=== PATIENT | male | born 1995 | race Asian ===

== ENCOUNTER 2021-10-28 07:30 | Emergency (ER) | payer MEDICAID, SELFPAY ==
[2021-10-28 07:39] VITALS: BP 140/97; PULSE 61; RESP 16; TEMP 36.1; O2SAT 98; BMI 24.8
--- NOTE | 2021-10-28 08:14 | ED.SOB ---
HPI - SOB/Dyspnea General Date Seen: 10/28/21 Chief Complaint: Shortness of Breath/Dyspnea Stated Complaint: Shortness of breath, difficult breathing mucus Time Seen by Provider: 10/28/21 07:50 Source: patient Mode of arrival: ambulatory Limitations: no limitations History of Present Illness HPI Narrative: Patient is a pleasant 26-year-old gentleman who presents here with 2-3 days weakness a waking up in the morning and feeling something in the back of his throat he says he has shortness of breath with this. In the feeling of something there. This lasts for approximately an hour and then goes away. He has had increased the allergies, he just got a pet rabbit. Is noted his nasal discharge is increasing. He is not really coughing at all, there is no fevers or chills, no nausea vomiting, he does not have any chest pain with this, or any feeling like he has inability to get his air in. He does however feel that he does not get enough oxygen, and was reassured we told him is oxygen status was normal. No productive cough, no leg swelling, no personal history of any cardiovascular or pulmonary issues, he is a nonsmoker, nonuser of drugs, no history of hypertension hyperlipidemia diabetes or other issues, there is no family history premature coronary artery disease or DVTs or pulmonary emboli, no history of asthma. Speaking to me in full sentences in absolutely no distress, elicited complaint: shortness of breath Treatment prior to arrival: none Related Data Home Medications Medication Instructions Recorded Confirmed cetirizine 10 mg capsule (All Day 10 mg PO DAILY PRN 10/28/21 10/28/21 Allergy (cetirizine)) Allergies Allergy/AdvReac Type Severity Reaction Status Date / Time No Known Drug Allergies Allergy Verified 10/28/21 07:44 Review of Systems Status of ROS: Reports: 10 or more systems reviewed and unremarkable except as noted in History and below [facility] Social History Smoking Status: Never smoker Do you use any of these nicotine containing products: Vaping Products Second hand tobacco smoke exposure: No How often do you have a drink containing alcohol: monthly or less How many standard drinks containing alcohol do you have on a typical day: 1 or 2 How often do you have six or more drinks on one occasion: Never AUDIT-C Alcohol total score: 1 Non-prescribed substance use: denies use Exam Narrative: Exam Narrative: Patient is sitting in the room quietly speaking to me with normal phonation, he appears nontoxic, pupils are equal round reactive to light, TMs are normal, cranial nerves 3-12 are normal, oropharynx is entirely normal he does have a posterior thin exudate notable. That is clear, and this correlates with his nasal mucosa bilaterally which is slightly engorged, there is no sinus tenderness to palpation, there is no lymphadenopathy anterior posterior chains, his JVP is flat, is carotid upstrokes are equal. His TMs are normal bilaterally. Chest is good air entry bilaterally no wheeze and or crackles noted, he has no splinting, and no complaints of chest pain when he takes deep breathing, forced expiration reveals absolutely no wheezes, is heart sounds no clicks murmurs or gallops are noted, and there is no displacement of his PMI, his abdomen is soft there is no guarding no past splenomegaly, his lower legs show no palpable pain, no edema, equal circumference bilaterally, and normal pulses, normal neurologic exam. Const: Vital Signs, click to edit/add: Vital Signs - 24 hr 10/28/21 07:39 Temperature 97.0 F L Pulse Rate [Bilate ral Pulse Oximeter ] 61 Respiratory Rate 16 Blood Pressure [Le ft Upper Arm] 140/97 H Pulse Oximetry 98 Oxygen Delivery Me thod Room Air Course Course Hospital Course: I discussed with the patient, that I believe this is from postnasal drip, commonly occurring in the mornings, when he is supine. Flonase 1 squirt per nostril once per day for the next 4 weeks, he he is not to stop this for the next 10 days, as there is a prolonged onset for this medication to work, he discontinued use the cetirizine, but I reassured him, I do not see anything issue here. I recommend follow-up with primary care, for further ongoing treatment, consider allergy testing in the future. I reassured him about his globus issues. Vital Signs Vital signs: Initial Vital Signs Temperature 97.0 F L 10/28/21 07:39 Temperature Source Temporal Artery Scan 10/28/21 07:39 Pulse Rate 61 10/28/21 07:39 Respiratory Rate 16 10/28/21 07:39 Blood Pressure 140/97 H 10/28/21 07:39 Blood Pressure Mean 111 10/28/21 07:39 Blood Pressure Position Sitting 10/28/21 07:39 Pulse Oximetry 98 10/28/21 07:39 Oxygen Delivery Method 10/28/21 07:39 Vital Signs Temperature 97.0 F L 10/28/21 07:39 Pulse Rate 61 10/28/21 07:39 Respiratory Rate 16 10/28/21 07:39 Blood Pressure 140/97 H 10/28/21 07:39 Pulse Oximetry 98 10/28/21 07:39 Oxygen Delivery Method 10/28/21 07:39 Temperature 97.0 F L 10/28/21 07:39 Pulse Rate 61 10/28/21 07:39 Respiratory Rate 16 10/28/21 07:39 Blood Pressure 140/97 H 10/28/21 07:39 Pulse Oximetry 98 10/28/21 07:39 Oxygen Delivery Method 10/28/21 07:39 MDM - SOB/Dyspnea MDM Narrative Medical decision making narrative: Life-threatening differential diagnosis includes occluded COPD exacerbation, pulmonary edema, acute coronary syndromes, pulmonary embolism, pneumonia, and pneumothorax. Other differential diagnosis considerations include asthma, bronchitis as well as other etiologies Medical Records Attestation: I reviewed the patient's medical records. Discharge Plan Discharge Clinical Impression: Allergic rhinitis Patient Disposition: Home, Self-Care Condition: Stable Instructions: Allergic Rhinitis (ED), How to Use Nasal Weston (ED), Postnasal Drip (DC) Additional Instructions: Home, rest, suggest Flonase nasal spray 1 squirt per nostril once per day. this is OTC. Follow-up with primary care for further evaluation treatment, your respiratory examiner cardiovascular exam are normal, I believe this is in mucus in the back your throat, in the morning causing the issues. Prescriptions: No Action All Day Allergy (cetirizine) 10 mg capsule 10 mg PO DAILY PRN Follow Up/Referrals: Patito Luevano MD [Staff Physician] - Stand Alone Forms: [employer] Info Instructions
== END 2021-10-28 08:44 | disposition home or self-care (01) ==
LOC: ED 08:36
PROVIDERS: Emergency Provider Family Medicine
DX: J30.9 Allergic rhinitis, unspecified (principal)
CPT/HCPCS: 99282; 99283; 99284

== ENCOUNTER 2022-08-23 15:20 | Emergency (ER) | payer MEDICAID, SELFPAY ==
[2022-08-23 15:45] VITALS: BP 137/85; PULSE 60; RESP 16; TEMP 36.5; O2SAT 98; BMI 23.9
--- NOTE | 2022-08-23 16:50 | CRLHL7_ITS ---
For Patients: As a result of the Century Cures Act, medical imaging exams and procedure reports are released immediately into your electronic medical record. You may view this report before your referring provider. If you have questions, please contact your health care provider. HISTORY: Pain after striking right elbow on a chair. COMPARISON: None available. FINDINGS: The right elbow is examined with AP and lateral views. There is no sign of fracture, dislocation, or joint effusion. The soft tissues are normal in appearance without sign of radio-opaque foreign body. No degenerative disease is seen. IMPRESSION: Normal right elbow. Dictated by Slim Rizvi MD @ 08/23/2022 5:31:23 PM (Electronically Signed)
[2022-08-23 18:09] VITALS: BP 150/95; PULSE 55; RESP 16; O2SAT 99
--- NOTE | 2022-08-23 21:00 | ED.GENADULT ---
HPI - General Adult General Date Seen: 08/23/22 Chief complaint: Extremity Pain/Injury, Upper Time Seen by Provider: 08/23/22 18:09 Source: patient Mode of arrival: ambulatory Limitations: no limitations History of Present Illness HPI narrative: Patient is a 27-year-old male who bumped his right elbow about 5-6 days ago. He did not think much of it at the time and has been using some ibuprofen. The pain seems to be getting worse and now he is having some pain radiating down from his elbow to his hand. He is also having some triggering of his middle finger. He has pain with full flexion of the elbow as well as extension of the hand and wrist. He has no chronic health problems and only takes Zyrtec for allergies. He works at [employer]. No neck pain or cervical radicular symptoms. Related Data Home Medications Medication Instructions Recorded Confirmed cetirizine 10 mg capsule (All Day 10 mg PO DAILY PRN 10/28/21 08/23/22 Allergy (cetirizine)) Previous Rx's Medication Instructions Recorded naproxen 500 mg tablet 500 mg PO BID #60 tabs 08/23/22 Allergies Allergy/AdvReac Type Severity Reaction Status Date / Time No Known Drug Allergies Allergy Verified 08/23/22 16:54 Review of Systems Narrative: Review of systems is outlined above otherwise noted to be negative. [facility] Medical History (Updated 08/23/22 @ 18:24 by Ketan Mesa MD) Dog bite ?W54.0XXA - Bitten by dog, initial encounter (ICD-10) Social History Smoking Status: Current some day smoker Do you use any of these nicotine containing products: Vaping Products Second hand tobacco smoke exposure: No How often do you have a drink containing alcohol: monthly or less How many standard drinks containing alcohol do you have on a typical day: 1 or 2 How often do you have six or more drinks on one occasion: Never AUDIT-C Alcohol total score: 1 Non-prescribed substance use: denies use Little interest or pleasure in doing things: not at all Feeling down, depressed, or hopeless: not at all Exam Narrative: Exam Narrative: On exam there is no bruising or swelling noted of the right arm. He has full range of motion of the cervical spine without pain. He has a normal neurologic exam including strength, sensation, reflexes. He is tender over both the lateral and medial epicondyles. There is some pain with full flexion. He has some triggering of the right 3rd finger. There is pain with extension of the fingers and wrist. Positive Tinel's at the ulnar nerve. Negative Phalen's and Tinel's at the wrist. Const: Vital Signs, click to edit/add: Vital Signs - 24 hr 08/23/22 15:45 08/23/22 18:09 Temperature 97.7 F Pulse Rate [Pulse Oximeter] 60 55 L Respiratory Rate 16 16 Blood Pressure [[facility] Upper Arm] 137/85 150/95 H Pulse Oximetry 98 99 Oxygen Delivery Me thod Room Air Room Air Course Course Hospital Course: Patient was seen and examined. X-ray of the right elbow is unremarkable by my read and the radiologist concurs. Vital Signs Vital signs: Initial Vital Signs Temperature 97.7 F 08/23/22 15:45 Temperature Source Temporal Artery Scan 08/23/22 15:45 Pulse Rate 60 08/23/22 15:45 Pulse Rhythm Regular 08/23/22 15:45 Pulse Strength 3+ Normal 08/23/22 15:45 Respiratory Rate 16 08/23/22 15:45 Blood Pressure 137/85 08/23/22 15:45 Blood Pressure Mean 102 08/23/22 15:45 Blood Pressure Position Sitting 08/23/22 15:45 Pulse Oximetry 98 08/23/22 15:45 Oxygen Delivery Method Room Air 08/23/22 15:45 Vital Signs Temperature 97.7 F 08/23/22 15:45 Pulse Rate 60 08/23/22 15:45 Respiratory Rate 16 08/23/22 15:45 Blood Pressure 137/85 08/23/22 15:45 Pulse Oximetry 98 08/23/22 15:45 Oxygen Delivery Method Room Air 08/23/22 15:45 Temperature 97.7 F 08/23/22 15:45 Pulse Rate 55 L 08/23/22 18:09 Respiratory Rate 16 08/23/22 18:09 Blood Pressure 150/95 H 08/23/22 18:09 Pulse Oximetry 99 08/23/22 18:09 Oxygen Delivery Method Room Air 08/23/22 18:09 Medical Decision Making MDM Narrative Medical decision making narrative: I suspect that this is just a contusion and some soft tissue swelling at the elbow. The acute trigger finger is more difficult to explain but I suspect that is just related to inflammation in the forearm and flexor tendons. Discussed signs and symptoms to watch for if things are not improving. Discharge Plan Discharge Clinical Impression: Contusion of right elbow Patient Disposition: Home, Self-Care Condition: Stable Additional Instructions: Rest, ice, naproxen 500 mg twice daily with food, purchase a tennis elbow strap to wear at work. Consider taking a couple of days off of work. Follow-up in the clinic if symptoms are not improving over the next 1-2 weeks. Prescriptions: New naproxen 500 mg tablet 500 mg PO BID Qty: 60 2RF No Action All Day Allergy (cetirizine) 10 mg capsule 10 mg PO DAILY PRN Follow Up/Referrals: Weston Maldonado MD [Primary Care Provider] - Stand Alone Forms: [employer] Info Instructions
== END 2022-08-23 18:28 | disposition home or self-care (01) ==
PROVIDERS: Emergency Provider Family Medicine; PCP Family Medicine
DX: S50.01XA Contusion of right elbow, initial encounter (principal)
CPT/HCPCS: 73070; 99282

== ENCOUNTER 2022-12-19 12:45 | Outpatient (RCR) | payer OTHER, MEDICAID, SELFPAY ==
--- NOTE | 2022-11-09 16:01 | OT.OPOE ---
OT Outpatient Ortho Eval OT Outpatient Ortho Eval* Start: 11/07/22 15:39 Freq: Status: Active Protocol: Document 11/07/22 15:40 LORENA (Rec: 11/07/22 16:10 SAUMYATarsha [id number]) E-signed By Celi Klein, OTR/L, CLT OT OP Ortho Eval Details Complexity Complexity Medium Insurance Information Insurance Information Workman's Comp Outpatient History/Precautions Current Condition/Medical Diagnosis Referring Provider Dr. Weston Maldonado MD Treatment Diagnosis G56.0, M62.81 & M25.521 Date of Onset 08/17/22 Other Precautions Treatment Dx: Compression of anatomical structures in the wrist area Muscle weakness and pain in R elbow Medical Dx: Lateral epicondylitis, right elbow M77 .11 Carpal tunnel syndrome, right limb G56.01 Other Conditions Seasonal Allergies, patient takes over the counter allergy meds, right now he is also taking Aleve for pain management and a multivitamin. 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 Hobbies Video Games and Reading Fitness Active and healthy Ortho Subjective Subjective Subjective This happened back on August 17 and it just isn't getting any better Everything I do is affected by this injury, lifting, grabbing items, it even interrupts my sleep, it hurts the worse in the morning when I first wake up Pain Assessment Pain Present Pain Present Pain Reported Location Right Wrist Description Burning,Radiating,Throbbing Intensity 4 Right Elbow Description Tightness,Pressure,Throbbing, Tender,Heaviness Intensity 6 Range of Motion and Strength Shoulder Range of Motion and Strength Shoulder Range of Motion and Strength Bilaterally WNL and strength is 5/5 in all planes w/o pain Elbow/Forearm Range of Motion and Strength Elbow/Forearm Range of Motion and Increased R elbow pain when Strength testing straight arm division chair strength, weakness in elbow extension, tenderness around the elbow. Distal elbow/forearm of the R is swollen-fluid is dense Wrist Range of Motion and Strength Wrist Range of Motion and Strength Tingling sensation with wrist in prolonged flexion, AROM of R and L wrists are WNL Hand/Finger/Thumb Range of Motion and Strength Hand/Finger/Thumb Range of Motion and Patient able to make full Strength composite fist bilaterally Patient has tightness of his tendons on the R hand. When performing tendon glides he had difficulty at end ranges Reported feeling stiffness Hand Pinch/Dye Colorist Dyer Strength Hand Right Dye Colorist Dyer Strength Position 1 (lbs) 61 Dye Colorist Dyer Strength Position 2 (lbs) 55 Lateral Pinch Strength (lbs) 11 Three Point Pinch (lbs) 14 Tip Pinch Strength (lbs) 14 Left Dye Colorist Dyer Strength Position 1 (lbs) 85 Dye Colorist Dyer Strength Position 2 (lbs) 91 Lateral Pinch Strength (lbs) 18 Three Point Pinch (lbs) 19 Tip Pinch Strength (lbs) 18 Upper Extremity Special Tests Wrist Durkan's Test Negative Left,Positive Right Median Nerve-Carpal Tunnel Wrist Phalen Test Negative Left,Positive Right OT Problems Problems Problems Decreased Strength,Decreased Range of Motion,Pain,Lifting, Gripping,Pinching Other Problems Writing,Opening Containers, Computer,Sleeping Patient Potential Good Assessment Assessment Assessment 27 year old male here in clinic s/p a workman's comp was first seen in the ED on 01/05 after an injury at work on 08/17/22. He then had f/u appointments for the same condition on 09/12/22, 10/03/22 and was referred to Ortho, saw Dr. Yadav on 10/11/22 and then was back at his primary care provider again on 11/03/22 when he was given a referral for skilled OT for treating R hand carpal tunnel and R elbow lateral epicondylitis. He is taking Aleve daily and wearing a wrist brace on the R hand without noticing improvement in symptoms. 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 Next f/u apt is with ortho on 12/06/2022. Right wrist: Positive Durkan' s and Tinel's test: decreased sensation in a median nerve distribution on the right hand compared to the left. Right tennis elbow-tenderness at the lateral aspect of the elbow and R forearm more swollen in comparison to the L, fluid is dense. Occupational Therapy Treatment Plan - OP Potential Rehabilitation Potential Good Barriers Barriers to goal attainment This is a chronic, condition began on August 17 2022 and patient has a dual diagnosis with both conditions on the same UE (dominant R arm). Set Goals Goals Set with Patient Yes Goals Goals 1. Patient will verbalize 3 activity modifications to decrease abusive/overloading of the tendons. 2. Pt will demonstrate pain- free division chair and pinch strength comparable to the uninvolved side in order to improve functional grasp, hold, reach, and lifting ability needed to complete self-care, leisure tasks, and work activities. 3. Through activity participation in skilled therapy sessions, following a brace wearing schedule and consistency in performing a customized HEP, patient will improve capacity of tendons and muscles to manage load in order to have less pain with ADLs, work, leisure activities and IADLs. Target Date 2022 Treatment Plan Treatment Plan Evaluation,Edema Control,Joint Mobilization,Manual Therapy, Ultrasound,Therapeutic Exercise,Self Care/Home Management,Education Expected Frequency 1-2x Week Expected Duration 8-10 Weeks Home Program Home Program Home Program Initiated Home Program Specifics Carpal Tunnel Stretches Tennis Elbow Stretches Ice Cup Massage Certification Certification I Certify That: Therapy Services Provided, Therapy Plan Established, Therapy Plan Reviewed Recertification Information Recertification Information Initial Certification Date 11/07/22 Recertification Due Date 02/05/23 Provider Signature Shows Agreement With POC & Medical Necessity Physician Comment/Change Comment or Changes Physician NPI Number #
== END 2022-12-19 16:32 | disposition home or self-care (01) ==
PROVIDERS: PCP Family Medicine; Visit Provider Family Medicine
DX: M77.11 Lateral epicondylitis, right elbow (principal); G56.01 Carpal tunnel syndrome, right upper limb; M62.81 Muscle weakness (generalized); M25.521 Pain in right elbow; Z51.89 Encounter for other specified aftercare
CPT/HCPCS: 97033; 97035; 97140; 97166

== ENCOUNTER 2023-08-10 22:52 | Emergency (ER) | payer MEDICAID, SELFPAY ==
[2023-08-10 22:58] VITALS: BP 148/82; PULSE 61; RESP 18; TEMP 36.5; O2SAT 98; BMI 24.8
--- NOTE | 2023-08-10 23:10 | ED.HA ---
HPI - Headache General Chief Complaint: Headache/Migraine Stated Complaint: head pain Time Seen by Provider: 08/10/23 23:07 History of Present Illness HPI Narrative: This 28-year-old male comes in reporting some episodes of pain in the posterior occipital region of his head. This pain is there only with movements or more sudden movements. He states that he did hit his head on a car accidentally a couple days ago. He did not have loss of consciousness. He does not report any altered sensation or weakness. He is otherwise in good health. He states the pain in his head is not constant but occurs with certain movements. Related Data Home Medications ?Medication ?Instructions ?Recorded ?Confirmed cetirizine 10 mg capsule (All Day 10 mg PO DAILY PRN 10/28/21 08/10/23 Allergy (cetirizine)) multivitamin (Daily Multi-Vitamin 1 tab PO QDAY 09/12/22 08/10/23 tablet) aspirin 325 mg tablet 650 mg PO Q4-6H PRN 12/08/22 08/10/23 Allergies Allergy/AdvReac Type Severity Reaction Status Date / Time No Known Drug Allergies Allergy Verified 08/10/23 23:02 Review of Systems Status of ROS: Reports: 10 or more systems reviewed and unremarkable except as noted in History and below Narrative: Constitutional: No fevers, no weight gain or loss. Eyes: No discharge. No vision changes. HENT: No congestion, no sore throat, no ear pain. Cardiovascular: No chest pain, no palpitations. Respiratory: No shortness of breath, no wheezes, no cough. Gastrointestinal: No abdominal pain, no vomiting, no diarrhea. Genitourinary: No dysuria, no hematuria. Musculoskeletal: Normal range of motion. Skin: No rashes, no pruritis. Neurological: No dizziness, weakness, sensory change, speech change. Endo/Heme/Allergies: No bruising or bleeding. No polydipsia. Pysch: no suicidality, no anxiety, no insomnia. All other systems reviewed and are negative. [facility] Medical History (Updated 08/11/23 @ 00:52 by Gurvinder Cai MD) Dog bite ?W54.0XXA - Bitten by dog, initial encounter (ICD-10) Surgical History (Updated 10/11/22 @ 09:38 by Madeleine Ferguson ~ [facility], [facility]) History of cosmetic surgery (~2000) ?Z98.890 - Other specified postprocedural states (ICD-10) Social History (Reviewed 10/11/22 @ 09:38 by Madeleine Ferguson ~ [facility], [facility]) Smoking Status: Current every day smoker Do you use any of these nicotine containing products: E-Cigarettes and Vaping Products Second hand tobacco smoke exposure: No How often do you have a drink containing alcohol: monthly or less How many standard drinks containing alcohol do you have on a typical day: 1 or 2 How often do you have six or more drinks on one occasion: Never AUDIT-C Alcohol total score: 1 Non-prescribed substance use: denies use Little interest or pleasure in doing things: not at all Feeling down, depressed, or hopeless: not at all Exam Narrative: Exam Narrative: Constitutional: Well-developed, well-nourished, no acute distress. HEENT: Normocephalic, atraumatic. Neck: Normal range of motion. Nontender. Supple. Heart: Regular. No murmurs. Normal rate. Intact distal pulses. Lungs: Clear to auscultation. No chest discomfort. No wheezes, rhonchi, or rales. Abdomen: Normal bowel sounds. Nontender. No rebound tenderness. Genitalia: Deferred. Back: No midline tenderness. Normal range of motion. Extremities: Normal range of motion. No injury. Skin: Intact. No rash. Warm. No erythema or pallor. Neurologic: No altered sensation. No weakness. Alert and oriented. Psychiatric: No suicidality. No anxiety or depression. No insomnia. Nursing notes and vitals signs are reviewed. Const: Vital Signs, click to edit/add: Vital Signs - 24 hr 08/10/23 22:58 Temperature 97.7 F Pulse Rate [Pulse Oximeter] 61 Respiratory Rate 18 Blood Pressure [Ri ght Upper Arm] 148/82 H Pulse Oximetry 98 Oxygen Delivery Me thod Room Air Course Vital Signs Vital signs: Initial Vital Signs Temperature 97.7 F 08/10/23 22:58 Temperature Source Temporal Artery Scan 08/10/23 22:58 Pulse Rate 61 08/10/23 22:58 Respiratory Rate 18 08/10/23 22:58 Blood Pressure 148/82 H 08/10/23 22:58 Blood Pressure Mean 104 08/10/23 22:58 Blood Pressure Position Sitting 08/10/23 22:58 Pulse Oximetry 98 08/10/23 22:58 Oxygen Delivery Method Room Air 08/10/23 22:58 Vital Signs Temperature 97.7 F 08/10/23 22:58 Pulse Rate 61 08/10/23 22:58 Respiratory Rate 18 08/10/23 22:58 Blood Pressure 148/82 H 08/10/23 22:58 Pulse Oximetry 98 08/10/23 22:58 Oxygen Delivery Method Room Air 08/10/23 22:58 Temperature 97.7 F 08/10/23 22:58 Pulse Rate 61 08/10/23 22:58 Respiratory Rate 18 08/10/23 22:58 Blood Pressure 148/82 H 08/10/23 22:58 Pulse Oximetry 98 08/10/23 22:58 Oxygen Delivery Method Room Air 08/10/23 22:58 MDM - Headache MDM Narrative Medical decision making narrative: This patient comes in with concern about symptoms in his head as described above. He did hit his head a couple days ago but did not have loss of consciousness. He has normal vital signs and does not report an ongoing headache. The patient did have a CT scan of his head which by my review returns with no acute abnormalities. Radiology report is pending. The patient is okay to be discharged home and encouraged use [id number]-trzkibl medicines as needed and directed. Discharge Plan Discharge Clinical Impression: Headache Patient Disposition: Home, Self-Care Condition: Stable Additional Instructions: Use rkuv-hqh-lhmysdv medicines as needed and directed. Increase activity as tolerated. Follow up with MD return if worsening. Prescriptions: No Action multivitamin [Daily Multi-Vitamin] Tablet 1 tab PO QDAY aspirin 325 mg tablet 650 mg PO Q4-6H PRN All Day Allergy (cetirizine) 10 mg capsule 10 mg PO DAILY PRN Follow Up/Referrals: Weston Maldonado MD [Primary Care Provider] - Stand Alone Forms: Reelio Info Instructions
[2023-08-10 23:11] VITALS: PULSE 65; O2SAT 100
[2023-08-10 23:30] VITALS: PULSE 69; O2SAT 99
[2023-08-10 23:31] VITALS: BP 127/88; PULSE 62; RESP 18; O2SAT 100
--- OUTSIDE RECORDS SUMMARY | 2023-08-10 23:34 | XMS_ITS | Encounter Summary ---
Author Organization [facility] Address [address] [place] [address] Care Team Providers Care Structural Steel Painter Name Role Phone Elsewhere, Pcp Primary Care Provider Unavailabl e Reason for Visit * Appointment Request (Routine) - Pending Review Specialty Diagnoses / Procedures Referred By Aleshia urban Referred To Contact Infectious Diseases Jacques Parekh P.A.-C. [address] [place] [phone] Referral ID Status Reason Start Date Expiration Date V isits Requested Visits Authorized [id number] Pending Review 06/12/2023 06/11/2024 1 1 Encounter Details Date Type Department Care Team (Late st Contact Info) Description 06/27/2023 1:30 PM CDT Virtual Visit Section of Infectious Diseases in [place], [place] [address] [place] [phone] Kelley Gary MPAS, P.A.-CJason, M.S. [address] [place] [phone] Exposure Biological Fluid (Primary Dx) Social History Tobacco Use Types Packs/Day Years Used Date Smoking Tobacco: Some Days Smokeless Tobacco: Never Nutrition Answer Date Recorded Nutrition: EVOO Fat Source 13 09/09 Nutrition: Servings of Fruits/Vegetables per Day Not on file 09/10/2019 Dental Answer Date Recorded Dental: Regular Dentist Unknown 04/17/19 21 Sex and Gender Information Value Date Recorded Sex Assigned at Not on file Gender Identity Not on file Sexual Orientation Not on file documented as of this encounter Progress Notes * Kelley Gary MPAS P.Belkis.-C., M.S. - 06/27/2023 1:30 PM CDT Infectious Diseases-Subsequent Visit Note Consult conducted via real-time audio/video technology by ALMAS Shultz, PDevika, M.S. in [facility] to the patient in Patient's Home SUBJECTIVE Referring Provider: Jacques Parekh P.A.-C. REASON FOR CONSULT [facility] Employee Occupational Blood/Body Fluid Exposure HISTORY OF PRESENT ILLNESS Mr. 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 He sustained an eye splash alex both eyes while cleaning tools in a chemical [employer]. They had already undergone one cycle of cleaning/decontamination, but some were still visibly soiled. Baseline testing was negative for HCV screen and HIV Ab and Ag screen. Mr. Haro is seropositive for Hepatitis B. Mr. Haro received Truvada and dolutegravir. He denies any side effects or issues with taking his post exposure HIV prophylaxis. REVIEW OF SYSTEMS I have reviewed the encounter review of systems and pertinent responses are noted in the history. I have reviewed and updated the following: allergies, current medications, medical history, social history, and problem list. OBJECTIVE LABS 06/21 AST 22, Creatinine 1.21, Hbg 15.8, WBC 6.3, ANC 3.57 and platelet 341 (135-317) MICROBIOLOGY 06/08 HIV screen Negative --HCV screen Negative 04/05 HBs antibody: positive ANTIMICROBIALS Truvada 200-300 mg orally once daily Dolutegravir 50 mg orally once daily ASSESSMENT / PLAN Blood/body fluid exposure, mucocutaneous , 06/08/2023 Hepatitis B seropositive via immunization DISCUSSION Mr. Haro' s two week labs were stable with the exception of platelets being slightly elevated. No further work up or repeat labs recommended for this. We recommend he complete his current course of post exposure prophylaxis. Future lab monitoring will be done by [facility]. RECOMMENDATIONS -Continue dolutegravir (Tivicay) 50 mg orally once daily to complete a total of 28 days therapy. -Continue Truvada 200-300 mg by mouth one time daily to complete a total of 28 days therapy. -Follow up labs per Occupational Health Protocol. Treatment plan reviewed with Mr. Haro, who expressed understanding. All questions answered to patient's satisfaction. ALMAS Shultz P.A.-C., M.S. documented in this encounter Miscellaneous Notes * Addendum Note - Jacques Parekh P.A.-C. - 06/27/2023 1:30 PM CDTAddended by: JACQUES PAREKH on: 06/27/2023 03:42 PM Modules accepted: Orders documented in this encounter Plan of Treatment Not on file documented as of this encounter Visit Diagnoses Diagnosis Exposure Biological Fluid- Primary documented in this encounter Care Teams Structural Steel Painter Relationship Specialty Start Date End Date Elsewhere, Pcp PCP - General 09/20/21 documented as of this encounter
--- OUTSIDE RECORDS SUMMARY | 2023-08-10 23:34 | XMS_ITS | Encounter Summary ---
Author Organization [facility] Address [address] [place] [address] Care Team Providers Care Cementer Name Role Phone Elsewhere, Pcp Primary Care Provider Unavailabl e Encounter Details Date Type Department Care Team (Late st Contact Info) Description 10/27/2016 Historical Ophthalmology [facility] Enrico Marin M.D. [address] [place] [phone] Social History Tobacco Use Types Packs/Day Years Used Date Smoking Tobacco: Some Days Sex and Gender Information Value Date Recorded Sex Assigned at Not on file Gender Identity Not on file Sexual Orientation Not on file documented as of this encounter Progress Notes * Enrico Marin M.D. - 10/27/2016 2:19 PM CDT Eye General CHIEF COMPLAINT CE HISTORY OF PRESENT ILLNESS Pt here today for annual routine eye exam. Pt thinks vision has gotten worse. General health = excellent. CDM Reports - EYEGEN Id: [id number] Status: Fnl documented in this encounter Plan of Treatment Not on file documented as of this encounter Visit Diagnoses Not on filedocumented in this encounter Care Teams Cementer Relationship Specialty Start Date End Date Elsewhere, Pcp PCP - General 09/20/21 documented as of this encounter
--- OUTSIDE RECORDS SUMMARY | 2023-08-10 23:34 | XMS_ITS | Encounter Summary ---
Author Organization [facility] Address [address] [place] [address] Care Team Providers Care Manager Machine Name Role Phone Elsewhere, Pcp Primary Care Provider Unavailabl e Reason for Referral * Outpatient (Routine) - Closed Specialty Diagnoses / Procedures Referred By Aleshia urban Referred To Contact Ophthalmology Bolivar Wade M.D. [address] [place] [phone] [facility] Referral ID Status Reason Start Date Expiration Date Visits Re quested Visits Authorized [id number] Closed 06/09/2023 12/08/2024 1 1 Scheduling Instructions VTD both eyes Reason for Visit * Reason Comments Eye Exam Encounter Details Date Type Department Care Team (Latest Contact Info) Description 06/09/2023 4:30 PM CDT Comprehensive Visit Department of Ophthalmology in [place], [place] [address] [place] [phone] René Francis M.D. [address] [place] [phone] Bolivar Wade M.D. [address] [place] [phone] Exposure Chemical Eye (Primary Dx); Myopia Bilateral; Conjunctivitis Chemical Acute Bilateral Social History Tobacco Use Types Packs/Day Years [...] on file documented as of this encounter Consult Notes * Bolivar Wade M.D. - 06/09/2023 4:30 PM CDT Iglesia Haro is a 28 y.o. male seen in clinic today for chemical injury, both eyes. He got surgistain in both eyes (phosphoric acid pH 1.5) at work earlier today. He rinsed his eyes for 15 minutes following the exposure and took his contact lenses out. Past ocular history including high myopia and prior right lower eyelid surgery following a dog bite. # Acute chemical conjunctivitis, both eyes # High myopia Impression: Acute chemical conjunctivitis, both eyes, following exposure to acidic chemical at work earlier today. Fortunately, no ocular sequelae seen on exam today, and pH was 7 on assessment today. Discussed symptomatic treatment with topical lubrication and contact lens holiday to avoid further irritation.He has a high myope but has not had a dilated exam in 4 years. Recommend he return for dilated fundus exam within the next month for routine monitoring. PLAN 06/09/23: -Ocular surface lubrication with OTC artificial tears/ointment 4+ times daily, both eyes -No contact lenses for 5 days -Return for dilated exam within the next month The patient was understanding and in agreement with this plan. All questions were answered to the best of my ability. Bolivar Wade M.D. Pager: [phone] documented in this encounter Plan of Treatment Scheduled Referrals Name Type Priority Associated Diagnoses Order Schedule Ophthalmology office visit (clinic) Outpatient Referral Routine Expected: 06/23/2023, Expires: 09/07/2024 documented as of this encounter Visit Diagnoses Diagnosis Exposure Chemical Eye- Primary Myopia Bilateral Conjunctivitis Chemical Acute Bilateral documented in this encounter Care Teams Manager Machine Relationship Specialty Start Date End Date Elsewhere, Pcp PCP - General 09/20/21 documented as of this encounter
--- OUTSIDE RECORDS SUMMARY | 2023-08-10 23:34 | XMS_ITS | Encounter Summary ---
Author Organization [facility] Address [address] [place] [address] Care Team Providers Care Case Assembler Name Role Phone Elsewhere, Pcp Primary Care Provider Unavailabl e Encounter Details Date Type Department Care Team (Late st Contact Info) Description 06/08/2023 Orders Only Section of Infectious Diseases in [place], [place] [address] [place] [phone] Calvin Mireles M.D. [address] [place] [phone] Social History Tobacco Use Types Packs/Day Years [...] on file documented as of this encounter Plan of Treatment Not on file documented as of this encounter Visit Diagnoses Not on filedocumented in this encounter Care Teams Case Assembler Relationship Specialty Start Date End Date Elsewhere, Pcp PCP - General 09/20/21 documented as of this encounter
--- OUTSIDE RECORDS SUMMARY | 2023-08-10 23:34 | XMS_ITS | Clinical Summary ---
Author Organization [facility] Address [place], [place] [address] Care Team Providers Care Nuisance Animal Damage Control Agent Name Role Phone Pcp, No Primary Care Provider Unavailabl e Allergies No known active allergies Medications Medication Sig Dispensed Refills Start Date End Date Status ipratropium (ATROVENT NASAL) 21 mcg (0.03 %) nasal sprayIndications:Post -nasal drip Inhale 2 Sprays into affected nostril(s) three times daily. Roy dose in each nostril. 30 mL 11/11/2021 Active Active Problems No known active problems Social History Tobacco Use Types Packs/Day Years Used Date Smoking Tobacco: Never Smokeless Tobacco: Never Alcohol Use Standard Drinks/Week Comments Yes 0 (1 standard drink = 0.6 oz pur e alcohol) Social Connections Answer Date Recorded Frequency of Communication with Friends and Fami ly Not on file 11/11/2021 Sex and Gender Information Value Date Recorded Sex Assigned at Not on file Gender Identity Not on file Sexual Orientation Not on file Obstetrics History Last Filed Vital Signs Vital Sign Reading Time Taken Comments Blood Pressure 135/89 11/11/2021 9:05 AM CDT Pulse 67 11/11/2021 9:05 AM CDT Temperature 36.8 ??C (98.2 ??F) 11/11/2021 9:05 AM CD T Respiratory Rate 18 10/30/2017 5:51 AM CDT Oxygen Saturation 98% 11/11/2021 9:05 AM CDT Inhaled Oxygen Concentration - - Weight 67.3 kg (148 lb 6.4 oz) 11/11/2021 9:05 A M CDT Height 160 cm (5' 3) 10/30/2017 5:51 AM CDT Body Mass Index 26.29 10/30/2017 5:51 AM CDT Plan of Treatment Health Maintenance Due Date Last Done Comments Tdap 2005 Depression screening for age 12+ 2006 HIV for age 15-65 2009 BMI (ht and wt on same day) for age 18+ 2012 Hepatitis C screening for ag e 18-79 2012 Tetanus booster 2014 COVID-19 vaccine series (2022- season) 2022 02/25/2021, 06/12/2020, 05/22/2020 Influenza for age 9-49 10/15/2023 Pneumococcal series for age 6-64 Aged Out No longer eligible b ased on patient's age to complete this topic Care Teams Nuisance Animal Damage Control Agent Relationship Specialty Start Date End Date Pcp, No . PCP - General 10/30/17
--- OUTSIDE RECORDS SUMMARY | 2023-08-10 23:34 | XMS_ITS ---
Author Organization [facility] Address [address] [place] [address] Care Team Providers Care Staff Respiratory Therapist Name Role Phone Unavailable Unavailable Unavailable Surgery Details Not on file Complications Check Surgery Details section. Procedure Estimated Blood Loss Check Surgery Details section. Procedure Findings Check Surgery Details section. Procedure Specimens Taken Check Surgery Details section.
--- OUTSIDE RECORDS SUMMARY | 2023-08-10 23:34 | XMS_ITS | Referral Summary ---
Author Organization [facility] Address [address] [place] [phone] Care Team Providers Care Gis Physical Scientist Name Role Phone Elsewhere, Pcp Primary Care Provider Unavailabl e Source Comments Patient records contain information from all sites at [facility]. For routine questions regarding patient records, call [phone] during business hours, M-F 8:00 AM - 5:00 PM Central Time. Record requests for emergency care only can be directed to [phone] at any time.[facility] Encounters Date Type Department Care Team Description 06/28/2023 11:30 AM CDT Office Visit Department of Ophthalmology in [place], [place] [address] [place] [phone] Bolivar Wade M.D. Myopia Bilateral (Primary Dx); Degeneration Retinal Lattice Bilateral 06/27/2023 1:30 PM CDT Virtual Visit Section of Infectious Diseases in [place], [place] [address] [place] [phone] Kelley Gary MPAS, P.A.-C., M.S. Exposure Biological Fluid (Primary Dx) 06/12/2023 2:30 PM CDT Office Visit Section of Infectious Diseases in [place], [place] [address] [place] [phone] Evelyn Liang, P.A.-CJason Exposure Biological Fluid (Primary Dx) 06/09/2023 4:30 PM CDT Comprehensive Visit Department of Ophthalmology in [place], [place] [address] [place] [phone] René Francis M.D. Ashby, Grayson B, M.D. Exposure Chemical Eye (Primary Dx); Myopia Bilateral; Conjunctivitis Chemical Acute Bilateral 06/09/2023 Clinical Communication Department of Ophthalmology in [place], [place] [address] [place] [phone] Prescheduling, Provider Triage 06/08/2023 Orders Only Section of Infectious Diseases in [place], [place] [address] [place] [phone] Calvin Mireles M.D. from Last 3 Months Allergies Active Allergy Reactions Criticality Noted Date Comments Animal Dander Shortness of breath with other systemic symptoms especially skin reaction High 06/12/2023 Breathing issues House Dust Mite Shortness of breath 06/12/2023 Medications Medication Sig Dispensed Refills Start Date End Date Status naphazo HCl-hpm-ps 80-Zn sulf (CLEAR EYES COMPLETE) 0.025-0.2-0.5 % drops Administer 1 drop into both eyes 2 (two) times a day as needed. 09/15/2015 Active white petrolatum-mineral oil (REFRESH P.M.) 57.3-42.5 % ointment Apply 1 application to both eyes at bedtime as needed. 09/15/2015 Active ibuprofen (ADVIL,MOTRIN) 200 mg capsule Take 200 mg by mouth as needed. 12/26/2010 Active diphenhydrAMINE (BENADRYL) 50 mg tablet Take 25 mg by mouth as needed for itching. Active fluticasone (FLONASE) 50 mcg/actuation nasal spray Administer 1 spray into each nostril daily. Active emtricitabine-tenof ovir (Truvada) 200-300 mg per tablet Take 1 tablet by mouth daily for 8 days. 8 tablet 06/27/2023 Active Active Problems Problem Noted Date Diagnosed Date Exposure Biological Fluid 06/09/2023 Immunizations Name Administration Dates Next Due DTP 11/27/1995,1994,1994 ,1994 DTaP (Infanrix, [employer]) 10/10/2005,05/21/1999 HepA Pediatric/Adolescent 07/04/2007 HepB Adult 02/14/2023 HepB Pediatric/Adolescent 02/23/1995,1994, 1994 IPV 05/21/1999,1994,1994 ,1994 MCV4 (Menactra)(Discontinued) 11/14/2006 MCV4, Unspecified 11/14/2006 MMR 02/14/2023,05/21/1999,08/29/1995 Tdap 07/18/2022,10/10/2005 TyVi (inj) 07/04/2007 ALVIN 11/14/2006,10/29/1995 Social History Tobacco Use Types Packs/Day Years [...] on file Sexual Orientation Not on file Last Filed Vital Signs Vital Sign Reading Time Taken Comments Blood Pressure 143/91 07/13/2018 9:37 AM CDT Pulse 95 07/13/2018 9:37 AM CDT Temperature 35.9 ??C (96.6 ??F) 06/12/2023 2:01 PM CD T Respiratory Rate 16 07/13/2018 9:37 AM CDT Oxygen Saturation - - Inhaled Oxygen Concentration - - Weight 61.2 kg (134 lb 14.7 oz) 06/12/2023 2:01 PM CDT Height - - Body Mass Index - - Plan of Treatment Not on file Care Teams Gis Physical Scientist Relationship Specialty Start Date End Date Elsewhere, Pcp PCP - General 09/20/21
--- OUTSIDE RECORDS SUMMARY | 2023-08-10 23:34 | XMS_ITS | Clinical Summary ---
Author Organization [facility] Address [address] [place] [address] Care Team Providers Care Manager Mountain Name Role Phone Elsewhere, Pcp Primary Care Provider Unavailabl e Source Comments Patient records contain information from all sites at [facility]. For routine questions regarding patient records, call [phone] during business hours, M-F 8:00 AM - 5:00 PM Central Time. Record requests for emergency care only can be directed to [phone] at any time.[facility] Allergies Active Allergy Reactions Criticality Noted Date [...] Date Diagnosed Date Exposure Biological Fluid 06/09/2023 Encounters Date Type Department Care Team Description 06/28/2023 11:30 AM CDT Office Visit Department of Ophthalmology in [place], [place] [address] [place] [phone] Bolivar Wade M.D. Myopia Bilateral (Primary Dx); Degeneration Retinal Lattice Bilateral 06/27/2023 1:30 PM CDT Virtual Visit Section of Infectious Diseases in [place], [place] [address] [place] [phone] Kelley Gary, [facility], P.A.-C., M.S. Exposure Biological Fluid (Primary Dx) 06/12/2023 2:30 PM CDT Office Visit Section of Infectious Diseases in [place], [place] [address] [place] [phone] Evelyn Liang, P.A.-C. Exposure Biological Fluid (Primary Dx) 06/09/2023 4:30 PM CDT Comprehensive Visit Department of Ophthalmology in [place], [place] [address] [place] [phone] René Francis M.D. Ashby, Grayson B, M.D. Exposure Chemical Eye (Primary Dx); Myopia Bilateral; Conjunctivitis Chemical Acute Bilateral 06/09/2023 Clinical Communication Department of Ophthalmology in [address] [phone] Prescheduling, Provider Triage 06/08/2023 Orders Only Section of Infectious Diseases in [place], [place] [address] [place] [phone] Calvin Mireles M.D. from Last 3 Months Immunizations Name Administration Dates Next Due DTP [...] Mass Index - - Plan of Treatment Health Maintenance Due Date Last Done Comments HIV Screening 1994 Hepatitis C Screening 1994 Tobacco Cessation counseling 1994 Pneumococcal vaccine (0-64 years) (1 of 2 - PCV) 2000 COVID-19 Vaccine ( - 2022-24 season) 2022 02/25/2021, 06/12/2020, 05/22/2020 Influenza Vaccine (#1) 2022 Depression Screening (Annual PHQ-2) 02/13/2023 DTaP,Tdap,and Td Vaccines (9 - Td or Tdap) 07/18/2032 07/18/2022, 10/10/2005, 10/10/2005, Additional history exists Hepatitis B Vaccines Completed 02/14/2023, 02/23/1995, 1994, Additional history exists HPV Vaccines Aged Out No longer eligi ble based on patient's age to complete this topic Care Teams Manager Mountain Relationship Specialty Start Date End Date Elsewhere, Pcp PCP - General 09/20/21
--- OUTSIDE RECORDS SUMMARY | 2023-08-10 23:34 | XMS_ITS | Encounter Summary ---
Author Organization [facility] Address [address] [place] [address] Care Team Providers Care Blasting Worker Name Role Phone Elsewhere, Pcp Primary Care Provider Unavailabl e Reason for Visit * Reason Onset Date Comments Triage 06/09/2023 Encounter Details Date Type Department Care Team ([facility] st Contact Info) Description 06/09/2023 Clinical Communication Department of Ophthalmology in [place], [place] [address] [place] [phone] Prescheduling, Provider Triage Social History Tobacco Use Types Packs/Day Years [...] on filedocumented in this encounter Care Teams Blasting Worker Relationship Specialty Start Date End Date Elsewhere, Pcp PCP - General 09/20/21 documented as of this encounter
--- OUTSIDE RECORDS SUMMARY | 2023-08-10 23:34 | XMS_ITS | Encounter Summary ---
Author Organization [facility] Address [address] [place] [address] Care Team Providers Care Disc Jockey Name Role Phone Elsewhere, Pcp Primary Care Provider Unavailabl e Encounter Details Date Type Department Care Team (Late st Contact Info) Description 11/15/2016 Historical Ophthalmology [facility] Enrico Marin M.D. [address] [place] [phone] Social History Tobacco Use Types Packs/Day Years Used Date Smoking Tobacco: Some Days Sex and Gender Information Value Date Recorded Sex Assigned at Not on file Gender Identity Not on file Sexual Orientation Not on file documented as of this encounter Progress Notes * Enrico Marin M.D. - 11/15/2016 1:19 PM CDT Contact Lens Exam HISTORY OF PRESENT ILLNESS Right lens today feels off per pt. Have been good until today, noticed when he was driving in to the appt. [employer] Torics= Vision was not as good. IMPRESSION / REPORT / PLAN #1 Astigmatism both eyes doing well with toric contacts. Plan: Contact Rx dispensed. F/u one year n/c CDM Reports - EYECL Id: [id number] Status: Fnl documented in this encounter Plan of Treatment Not on file documented as of this encounter Visit Diagnoses Not on filedocumented in this encounter Care Teams Disc Jockey Relationship Specialty Start Date End Date Elsewhere, Pcp PCP - General 09/20/21 documented as of this encounter
--- OUTSIDE RECORDS SUMMARY | 2023-08-10 23:34 | XMS_ITS | Encounter Summary ---
Author Organization [facility] Address [address] [place] [phone] Care Team Providers Care Pipe Stem Repairer Name Role Phone Elsewhere, Pcp Primary Care Provider Unavailabl e Reason for Referral * Outpatient (Routine) - Authorized Specialty Diagnoses / Procedures Referred By Aleshia urban Referred To Contact Ophthalmology Bolivar Wade M.D. [address] [place] [phone] [facility] Referral ID Status Reason Start Date Expiration Date V isits Requested Visits Authorized [id number] Authorized 06/28/2023 12/27/2024 1 1 Scheduling Instructions VTD both eyes Reason for Visit * Outpatient (Routine) - Closed Specialty Diagnoses / Procedures Referred By Aleshia urban Referred To Contact Ophthalmology Bolivar Wade M.D. [address] [place] [phone] [facility] Referral ID Status Reason Start Date Expiration Date Visits Re quested Visits Authorized [id number] Closed 06/09/2023 12/08/2024 1 1 Encounter Details Date Type Department Care Team (Latest Contact Info) Description 06/28/2023 11:30 AM CDT Office Visit Department of Ophthalmology in [place], [place] [address] [place] [phone] Bolivar Wade M.D. [address] [place] [phone] Myopia Bilateral (Primary Dx); Degeneration Retinal Lattice Bilateral Social History Tobacco Use Types Packs/Day [...] as of this encounter Progress Notes * Bolivar Wade M.D. - 06/28/2023 11:30 AM CDT Iglesia Haro is a 28 y.o. male seen in clinic today for follow up. Vision stable following chemical injury. No residual irritation or vision concerns today. Past ocular history including high myopia and prior right lower eyelid surgery following a dog bite. # Acute chemical conjunctivitis, both eyes, resolved surgistain in both eyes (phosphoric acid pH 1.5) without ocular sequelae # High myopia # Lattice degeneration, both eyes Impression: Patient presents for routine eye exam as he has not had a dilated exam in 4 years. Lattice degeneration seen in both eyes on exam today, but otherwise healthy fundus exam. Discussed higher risk for retinal detachment compared to average population over life time. Retinal detachment warning signs discussed. Patient will call if new symptoms. Otherwise, recommend dilated exam every 1-2 years, sooner if issues. PLAN 07/17/23: -Continue Ocular surface lubrication with OTC artificial tears/ointment as needed -OK to return to contacts -Dilated exam every 1-2 years The patient was understanding and in agreement with this plan. All questions were answered to the best of my ability. Bolivar Wade M.D. Pager: [phone] documented in this encounter Plan of Treatment Scheduled Referrals Name Type Priority Associated Diagnoses Order Schedule Ophthalmology office visit (clinic) Outpatient Referral Routine Expected: 06/27/2024, Expires: 09/27/2024 documented as of this encounter Visit Diagnoses Diagnosis Myopia Bilateral- Primary Degeneration Retinal Lattice Bilateral documented in this encounter Care Teams Pipe Stem Repairer Relationship Specialty Start Date End Date Elsewhere, Pcp PCP - General 09/20/21 documented as of this encounter
--- OUTSIDE RECORDS SUMMARY | 2023-08-10 23:34 | XMS_ITS | Encounter Summary ---
Author Organization [facility] Address [address] [place] [address] Care Team Providers Care Long Goods Drier Name Role Phone Elsewhere, Pcp Primary Care Provider Unavailabl e Encounter Details Date Type Department Care Team (Late st Contact Info) Description 06/12/2023 2:30 PM CDT Office Visit Section of Infectious Diseases in [place], [place] [address] [place] [phone] Evelyn Liang, P.A.-C. [address] [place] [phone] Exposure Biological Fluid (Primary Dx) Social History [...] on file documented as of this encounter Last Filed Vital Signs Vital Sign Reading Time Taken Comments Blood Pressure - - Pulse - - Temperature 35.9 ??C (96.6 ??F) 06/12/2023 2:01 PM CD T Respiratory Rate - - Oxygen Saturation - - Inhaled Oxygen Concentration - - Weight 61.2 kg (134 lb 14.7 oz) 06/12/2023 2:01 PM CDT Height - - Body Mass Index - - documented in this encounter Consult Notes * Evelyn Liang, P.A.-C. - 06/12/2023 2:30 PM CDT Infectious Diseases-Consult Note SUBJECTIVE Referring Provider: No ref. 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 Mr. Haro received Truvada and dolutegravir. Mr. Haro states that he is tolerating his medications well, but has been more christiansen while on them. No other new symptoms. He was seen by Ophthalmology as well. REVIEW OF SYSTEMS I have reviewed the encounter review of systems and pertinent responses are noted in the history. I have reviewed and updated the following: allergies, current medications, medical history, social history, and problem list. OBJECTIVE Vitals: 06/12/23 1401 Temp: (!) 35.9 ??C Weight: 61.2 kg PHYSICAL EXAMINATION Vitals reviewed. Constitutional Appearance: Normal appearance. Neurological Mental Status: He is alert. Mental status is at baseline. Psychiatric Mood and Affect: Mood normal. Behavior: Behavior normal. LABS No results found for this or any previous visit (from the past 72 hour(s)). MICROBIOLOGY 06/08 HIV screen Negative --HCV screen Negative 04/05 HBs antibody: positive ANTIMICROBIALS Truvada 200-300 mg orally once daily Dolutegravir 50 mg orally once daily ASSESSMENT / PLAN Blood/body fluid exposure, mucocutaneous , 06/08/2023 Hepatitis B seropositive via immunization DISCUSSION I discussed with Mr. Haro the infectious risks of a mucocutaneous exposure such as he sustained. Overall his risk of HIV and HCV transmission are very low. We discussed HIV post-exposure prophylaxis and what that looks like. After shared decision making, he has opted to complete the 4 week course ofHIV PEP with Truvada and dolutegravir. We reviewed his baseline labs. His platelet count is slightly elevated, but no additional testing or follow up is needed in regards to this at this time. A repeat blood draw will be performed at 2 weeks per protocol with an ID visit thereafter. Labs per IDS protocol. Mr. Haro is protected against Hepatitis B via immunization and has a proven positive titer. No further Hepatitis B testing is needed. RECOMMENDATIONS -Continue dolutegravir (Tivicay) 50 mg orally once daily to complete a total of 28 days therapy. -Continue Truvada 200-300 mg by mouth one time daily to complete a total of 28 days therapy. -Follow up labs per Occupational Health Protocol. -2-week follow-up to include CBC, creatinine and ALT or AST. Treatment plan reviewed with Mr. Haro, who expressed understanding. All questions answered to patient's satisfaction. Cindy Liang P.A.-C. documented in this encounter Plan of Treatment Not on file documented as of this encounter Visit Diagnoses Diagnosis Exposure Biological Fluid- Primary documented in this encounter Care Teams Long Goods Drier Relationship Specialty Start Date End Date Elsewhere, Pcp PCP - General 09/20/21 documented as of this encounter
[2023-08-11] VITALS: PULSE 62; O2SAT 99
[2023-08-11 00:01] VITALS: BP 129/89; PULSE 63; RESP 18; O2SAT 98
--- NOTE | 2023-08-11 00:14 | CRLHL7_ITS ---
For Patients: As a result of the Century Cures Act, medical imaging exams and procedure reports are released immediately into your electronic medical record. You may view this report before your referring provider. If you have questions, please contact your health care provider. TECHNIQUE: Multiplanar CT examination of the head was performed without the use of intravenous contrast. INDICATION: Headache. COMPARISON: None. FINDINGS: No loss of nick-white differentiation to suggest recent territorial infarct. No intracranial hemorrhage, abnormal extra-axial fluid collection, hydrocephalus or midline shift. The ventricles and cerebral sulci are normal in caliber. The basal cisterns are patent. Mild polypoidal thickening in the right maxillary sinus. Otherwise, the paranasal sinuses remain clear. The mastoid air cells are well aerated. The orbits and calvarium are unremarkable. The cerebellar tonsils are normal position. IMPRESSION: No acute intracranial findings. Please note that all CT scans at this facility use dose modulation, iterative reconstruction, and/or weight-based dosing when appropriate to reduce radiation dose to as low as reasonably achievable. Dictated by Bob Resendiz MD @ 08/11/2023 1:21:55 AM (Electronically Signed)
[2023-08-11 00:31] VITALS: PULSE 60; O2SAT 99
[2023-08-11 00:34] VITALS: BP 125/83; PULSE 55; RESP 18; O2SAT 98
== END 2023-08-11 01:00 | disposition home or self-care (01) ==
PROVIDERS: Emergency Provider Emergency Medicine Emergency Medical Services; PCP Family Medicine
DX: R51.9 Headache, unspecified (principal)
CPT/HCPCS: 70450; 99284